=== PATIENT | female | born 1945 | race Caucasian/White ===

== ENCOUNTER 2019-04-25 08:02 | Day surgery (SDC) | payer MEDICARE, OTHER ==
[~2019-04-25 08:02] MED LIST: CEFAZOLIN 1 GM/50 ML (PMX) 50 ML IVPB
[2019-04-25] MEDS ORDERED: morphine SULFATE/PF (10 MG/10 ML) INJ (10:41)
[2019-04-25] MEDS ORDERED: LIDOCAINE 100 MG SYRINGE (10:50)
[2019-04-25] MEDS ORDERED: FENTAnyl 50 MCG/ML VIAL (10:50)
[2019-04-25] MEDS ORDERED: CEFAZOLIN 1 GM INJ (10:50)
[2019-04-25] MEDS ORDERED: PROPOFOL 20 ML (10:50)
[2019-04-25] MEDS ORDERED: ROPIVACAINE 0.5 % 30 ML VIAL (10:51)
[2019-04-25] MEDS ORDERED: EPHEDrine 25 MG/5 ML SYG IV (11:00)
[2019-04-25] MEDS ORDERED: IPRATROPIUM (NEB) 0.5 MG/2.5 ML AMP HHN (11:00)
[2019-04-25] MEDS ORDERED: FENTAnyl 50 MCG/ML VIAL IV (11:00)
[2019-04-25] MEDS ORDERED: OXYCODONE/ACETAMINOPHEN (5/325) TAB PO (11:00)
[2019-04-25] MEDS ORDERED: HYDROmorphONE 1 MG/5 ML IV SYRINGE IV (11:00)
[2019-04-25] MEDS ORDERED: LABETALOL HCL 20MG INJ IV (11:00)
[2019-04-25] MEDS ORDERED: ALBUTEROL 0.083% (NEB) 2.5 MG/3 ML AMP HHN (11:00)
[2019-04-25] MEDS ORDERED: MEPERIDINE 25 MG INJ IV (11:00)
[2019-04-25] MEDS ORDERED: ONDANSETRON 4 MG INJ IV (11:00)
[2019-04-25] MEDS ORDERED: DIPHENHYDRAMINE 50 MG INJ IV (11:00)
[2019-04-25] MEDS ORDERED: hydrALAzine 20 MG INJ IV (11:00)
[2019-04-25] MEDS ORDERED: MIDAZOLAM 1 MG/ML 2 ML INJ (11:07)
[2019-04-25] MEDS ORDERED: EPHEDrine 25 MG/5 ML SYG (11:38)
[2019-04-25] MEDS ORDERED: PHENYLephrine (100 MCG/ML) 10ML SYG (11:39)
[2019-04-25] MEDS ORDERED: ONDANSETRON 4 MG INJ (11:39)
[2019-04-25] MEDS: EPINEPHrine 1 MG/ML 30 ML INJ (11:48)
[2019-04-25] MEDS: morphine SULFATE/PF (10 MG/10 ML) INJ (11:52)
[2019-04-25] MEDS ORDERED: HYDROCODONE/APAP (5/325) TAB PO (12:30)
[2019-04-25] MEDS: HYDROmorphONE 1 MG/5 ML IV SYRINGE IV ×3 (13:08→13:23)
[2019-04-25] MEDS: FENTAnyl 50 MCG/ML VIAL IV ×3 (13:09→13:23)
[2019-04-25] MEDS: OXYCODONE/ACETAMINOPHEN (5/325) TAB PO (13:14)
== END 2019-04-25 19:00 | disposition home or self-care (01) ==
LOC: SDS 08:02
DX: S83.271D Complex tear of lateral meniscus, current injury, right knee, subsequent encounter (principal); S83.231D Complex tear of medial meniscus, current injury, right knee, subsequent encounter; X58.XXXD Exposure to other specified factors, subsequent encounter; M94.261 Chondromalacia, right knee; M65.861 Other synovitis and tenosynovitis, right lower leg; I10 Essential (primary) hypertension
CPT/HCPCS: 29880